=== PATIENT | male | born 1995 | race Two or more races ===

== ENCOUNTER 2024-11-29 13:02 | Emergency (ER) | payer MEDICAID, SELFPAY ==
[2024-11-29 13:03] VITALS: BMI 26.5
[2024-11-29 13:16] VITALS: BP 121/82; PULSE 78; RESP 18; TEMP 36.8; O2SAT 98
--- NOTE | 2024-11-29 13:27 | EDNOTE_ITS ---
ED Head Injury RME/HPI General Chief complaint: Head Injury Stated complaint: BOARD FELL ON TOP HEAD, BLEEDING Time Seen by Provider: 11/29/24 13:06 Arrival date/time: 11/29/24 13:02 29-year-old male presents to the emergency department today stating doing yard work at the house and the board hit him on the top of the head patient reports he was bleeding from the head therefore he came to the ER for further evaluation. Patient reports no loss of consciousness no vomiting no dizziness no weakness no neck pain no chest pain or shortness of breath Limitations: no limitations Related Data Allergies Allergy/AdvReac Type Severity Reaction Status Date / Time bee venom protein (honey bee) Allergy Severe Swelling Verified 11/29/24 13:05 of Lip/Tongue/Throat Review of Systems Review of Systems Systems Reviewed: All systems reviewed, normal except as documented Constitutional Constitutional: Reports system reviewed and no additional complaints, except as documented, Denies fever(s) and Denies headache(s) Eyes Eyes: Reports system reviewed and no additional complaints, except as documented and Denies blurry vision ENT Ears, Nose, Mouth, and Throat: Reports system reviewed and no additional complaints, except as documented, Denies headache(s), Denies nasal congestion and Denies nasal discharge Cardiovascular Cardiovascular: Reports system reviewed and no additional complaints, except as documented, Denies chest pain and Denies dyspnea Respiratory Respiratory: Reports system reviewed and no additional complaints, except as documented, Denies chest congestion, Denies cough and Denies dyspnea Gastrointestinal Gastrointestinal: Reports system reviewed and no additional complaints, except as documented and Denies abdominal pain Integumentary/Breasts Skin/Breast: Reports system reviewed and no additional complaints, except as documented, Denies rash and Reports wounds (Laceration scalp) Neurologic Neurologic: Reports system reviewed and no additional complaints, except as documented, Reports as per HPI and Denies headache(s) Past Medical History Social History SMOKING STATUS: Never smoker ED Exam General Limitations: Present no limitations General appearance: Present alert and in no apparent distress Head Head exam: Present other (Laceration scalp) Expanded Head Exam Head image: 2 1. Laceration scalp Eye Eye exam: Present normal appearance, PERRL and EOMI ENT ENT exam: Present normal exam, normal oropharynx and mucous membranes moist Neck Neck exam: Present normal inspection, full ROM and trachea midline Chest Chest inspection: Present normal inspection and symmetric chest wall rise Respiratory Respiratory exam: Present normal lung sounds bilaterally Cardiovascular Cardiovascular exam: Present regular rate, normal rhythm and normal heart sounds Abdominal Exam Abdominal exam: Present soft and normal bowel sounds Extremities Exam Extremities exam: Present normal inspection and full ROM Back Exam Back exam: Present normal inspection and full ROM Neurological Exam Neurological exam: Present alert, oriented X3, CN II-XII intact, normal gait, reflexes normal and other (Patient walks with steady gait); Absent motor sensory deficit Psychiatric Psychiatric exam: Present normal affect and normal mood Skin Skin exam: Present warm, dry, intact and normal color Course Quality Measures none Orders Category Date Time Status Wound Care NOW Care 11/29/24 13:19 Active Tet,Diphth,Pertuss(Acell)-Tdap [Boostrix Vacc] Med 11/29/24 13:19 Discontinued 0.5 ml IMI .ONCE ONE Vital Signs Vital signs: Vital Signs Temperature 98.2 F 11/29/24 13:16 Pulse Rate 78 11/29/24 13:16 Respiratory Rate 18 11/29/24 13:16 Blood Pressure 121/82 11/29/24 13:16 Pulse Oximetry (%) 98 11/29/24 13:16 Oxygen Delivery Method Room Air 11/29/24 13:16 O2 saturation 98% room air within the limits Procedures -ED Laceration Laceration 1: Site: scalp Size (cm): 3 Description: linear Depth: simple, single layer Amount of anesthesia used (mL): 0 Skin layer closed with: other (Staple x 5) Head Injury MDM Narrative MDM Narrative:: 29-year-old male presents to the emergency department today stating doing yard work at the house and the board hit him on the top of the head patient reports he was bleeding from the head therefore he came to the ER for further evaluation. Patient reports no loss of consciousness no vomiting no dizziness no weakness no neck pain no chest pain or shortness of breath On exam patient well-appearing patient does not appear ill or toxic patient does have a laceration to the scalp approximately 3 cm wound irrigated copiously laceration pair with 5 ami patient tolerated procedure well Tetanus updated Patient does not meet criteria for CT scan reports no headache no dizziness no weakness Patient discharged home in no distress to follow-up with primary care doctor in the next 24 to 48 hours and for any worsening symptoms to return to the ER immediately Patient data External records reviewed:: [facility] previous records Clinical information provided by:: patient Social determinants that could affect healthcare access:: none Patient has the following chronic illnesses:: None How is presenting disease/condition affected by chronic disease/condition?: no chronic disease Evaluation data The following diagnostics were reviewed and interpreted by me:: other (specify) (N/A) Lab and/or radiology exams considered but not ordered:: Consider not ordered Interpretation Summary: N/A Medications / Prescriptions Medications or Prescriptions considered but not ordered:: Given Medication administrations:: Medication Administration History Discontinued Medications Diphtheria/Tetanus/Acell Pertussis (Diphth,Pertuss(Acell),Tet Vac 0.5 Ml Vial) 0.5 ml IMi .ONCE ONE Stop: 11/29/24 13:20 Last Admin: 11/29/24 13:35 Dose: 0.5 ml Documented By: OA Given Consultations Consultation(s) initiated? (list below): No Diagnosis Differential diagnosis head injury: concussion without loss of consciousness, closed head injury, subarachnoid hematoma, postconcussion syndrome and other (Laceration scalp) Most likely diagnosis given after review of the tests above:: Scalp laceration Admission Indicated Admission indicated?: not indicated Admission Request Was there a request for admission?: No Disposition Plan Disposition Plan: Discharge Discharge Attestation Discharge Attestation: The patient and all family members were given an opportunity to ask questions and understood the discharge instructions. Discharge instructions specifically effects, indications for sooner follow up or return to the emergency department, and the expected course of current diagnosis. Patient condition: Stable Discharge Plan Plan Patient Disposition: HOME (Self Care) Disposition Comment: Stable Problem List Clinical Impression: Laceration of scalp Patient/Caregiver Discharge Instructions Education Materials: ED Head Injury (Adult) Additional Instructions: Please follow up with your primary care doctor in the next 24-48hrs for any worsening symptoms return here immediately Please have ami removed in 10 days Print Language: Vietnamese Stand Alone Forms: Mattie Award Info., Work/School Release, Patient Portal Info Letter Vaccines Vaccines Given During Stay: TDaP TREVOR/THUY Supervising Physician TREVOR/THUY Supervising Physician: Dr. Contreras
[2024-11-29] MEDS: DIPHTH,PERTUSS(ACELL),TET VAC 0.5 ML VIAL IMi (13:35)
== END 2024-11-29 13:42 | disposition home or self-care (01) ==
PROVIDERS: Emergency Provider Emergency Medicine
DX: S01.01XA Laceration without foreign body of scalp, initial encounter (principal); W22.8XXA Striking against or struck by other objects, initial encounter; Y93.H2 Activity, gardening and landscaping; Y92.096 Garden or yard of other non-institutional residence as the place of occurrence of the external cause; Z23 Encounter for immunization
CPT/HCPCS: 12002; 90471; 90715; 99283

== ENCOUNTER 2024-12-09 10:49 | Emergency (ER) | payer MEDICAID, SELFPAY ==
[2024-12-09 10:50] VITALS: BMI 25.8
[2024-12-09 11:18] VITALS: BP 118/75; PULSE 72; RESP 19; TEMP 36.7; O2SAT 100
--- NOTE | 2024-12-09 12:17 | EDNOTE_ITS ---
ED Wound/Laceration-RME/HPI General Chief Complaint: Wound Recheck / Suture Removal Stated Complaint: NEED AMI REMOVED FROM HEAD Time Seen by Provider: 12/09/24 11:13 Source: patient Arrival date/time: 12/09/24 10:48 -year-old male who presented to the emergency department and request for staple removal from fronta head. No other concerns. Mode of arrival: ambulatory Limitations: no limitations Related Data Allergies Allergy/AdvReac Type Severity Reaction Status Date / Time bee venom protein (honey bee) Allergy Severe Swelling Verified 12/09/24 10:51 of Lip/Tongue/Throat Review of Systems Review of Systems Systems Reviewed: All systems reviewed, normal except as documented Narrative Review of Systems: Gen: No fever, no chills, no weight loss EYES: No discharge, no visual changes, no pain HEENT: No ear pain, no congestion, no sore throat PULM: No shortness of breath, no cough, no congestion CV: No chest pain, no dyspnea on exertion, no palpitations GI: No nausea, no vomiting, no diarrhea, no pain, no constipation ED Exam General Limitations: Present no limitations General appearance: Present alert and in no apparent distress Expanded Head Exam Head image: 2 1. Dry healed scar with ami Eye Eye exam: Present normal appearance, PERRL and EOMI ENT ENT exam: Present normal exam, normal oropharynx and mucous membranes moist Neck Neck exam: Present normal inspection, full ROM and trachea midline Chest Chest inspection: Present normal inspection and symmetric chest wall rise Respiratory Respiratory exam: Present normal lung sounds bilaterally Cardiovascular Cardiovascular exam: Present regular rate, normal rhythm and normal heart sounds Abdominal Exam Abdominal exam: Present soft and normal bowel sounds Extremities Exam Extremities exam: Present normal inspection and full ROM Back Exam Back exam: Present normal inspection and full ROM Neurological Exam Neurological exam: Present alert, oriented X3 and CN II-XII intact Psychiatric Psychiatric exam: Present normal affect and normal mood Skin Skin exam: Present warm, dry, intact and normal color Course Quality Measures none Vital Signs Vital signs: Vital Signs Temperature 98.0 F 12/09/24 11:18 Pulse Rate 72 12/09/24 11:18 Respiratory Rate 19 12/09/24 11:18 Blood Pressure 118/75 12/09/24 11:18 Pulse Oximetry (%) 100 12/09/24 11:18 Oxygen Delivery Method Room Air 12/09/24 11:18 Wound / Laceration MDM Narrative MDM Narrative:: all ami removed. patient tolerated well. wound care provided. no signs of infection to wound. will be discharged to follow-up with his PCP Patient data External records reviewed:: [facility] [place] previous records Clinical information provided by:: patient Social determinants that could affect healthcare access:: none Patient has the following chronic illnesses:: none How is presenting disease/condition affected by chronic disease/condition?: no chronic disease Evaluation data The following diagnostics were reviewed and interpreted by me:: other (specify) Lab and/or radiology exams considered but not ordered:: none Interpretation Summary: none Medications / Prescriptions Medications or Prescriptions considered but not ordered:: none Medication administrations:: none Consultations Consultation(s) initiated? (list below): No Diagnosis Wound Differential Diagnosis: laceration Most likely diagnosis given after review of the tests above:: Wound recheck/ Suture Removal Admission Indicated Admission indicated?: not indicated Explain why admission is indicated or not indicated:: none Admission Request Was there a request for admission?: No Disposition Plan Disposition Plan: Discharge Discharge Attestation Discharge Attestation: The patient and all family members were given an opportunity to ask questions and understood the discharge instructions. Discharge instructions specifically effects, indications for sooner follow up or return to the emergency department, and the expected course of current diagnosis. Patient condition: Stable Discharge Plan Plan Patient Disposition: HOME (Self Care) Patient condition on transfer: Stable Prescriptions/Referrals Referrals: No Primary/Family,Physician [Primary Care Provider] - In 1 week Problem List Clinical Impression: Removal of staple Patient/Caregiver Discharge Instructions Discharge Activity: activity as tolerated Education Materials: ED Stitches/Staple Removal No ... Additional Instructions: - Keep area clean and dry. Follow-up with your primary doctor clinic for follow-up care. Return to the emergency department this any worsening symptoms change in condition. Print Language: Vietnamese Stand Alone Forms: Mattie Award Info., Patient Portal Info Letter TREVOR/THUY Supervising Physician TREVOR/THUY Supervising Physician: Dr Ho
== END 2024-12-09 12:36 | disposition home or self-care (01) ==
PROVIDERS: Emergency Provider Emergency Medicine
DX: S01.91XD Laceration without foreign body of unspecified part of head, subsequent encounter (principal); X58.XXXD Exposure to other specified factors, subsequent encounter
CPT/HCPCS: 99282